=== PATIENT | female | born 1950 | race Caucasian/White ===

== ENCOUNTER → 2019-08-04 | Day surgery (SDC) | payer BC ==
[2019-08-04 09:33] VITALS: RESP 16; TEMP 98
[2019-08-04 10:55] VITALS: BP 163/72; PULSE 67
--- NOTE | 2019-08-04 11:55 | MM ---
EXAMINATION TYPE: MG stereo VAD BX RT DATE OF EXAM: 08/04/2019 COMPARISON: Outside images dated 07/19/2019 CLINICAL HISTORY: Abnormal mammogram. TECHNIQUE: Stereotactic guided core biopsy of right breast. 5 mm group of calcifications in the upper outer quadrant of the right breast for which stereotactic guided biopsy was recommended. FINDINGS: The procedure of stereotactic guided core biopsy was explained to the patient. Benefits, alternatives, and risks were discussed. An informed consent was then obtained. Preprocedural timeout was performed. Preprocedural localization images were obtained and a 5 mm group of calcifications within the upper outer quadrant of the right breast was demonstrated. Coordinates were calculated. Subsequently 10 cc of lidocaine without epinephrine was utilized to anesthetize the skin and deeper subcutaneous soft tissues. The needle was advanced to the appropriate depth. Prefire images were obtained ensuring appropriate location. Postfire injection of 10 cc of lidocaine with epinephrine was utilized to anesthetize the site of biopsy. A vacuum assisted biopsy gun was used to obtain 9 core samples. The patient tolerated the procedure well without any immediate complication. The patient was kept in the radiology department for short stay after the procedure and then discharged home in stable condition. Targeted calcifications are identified in specimen mammogram. Post biopsy mammogram shows the biopsy marker to appear in satisfactory position relative to the targeted area of concern on the preprocedure images without migration. IMPRESSION: SUCCESSFUL, UNCOMPLICATED STEREOTACTIC GUIDED CORE BIOPSY OF A 5 MM GROUP OF CALCIFICATIONS IN THE UPPER OUTER QUADRANT OF THE RIGHT BREAST, FULL PATHOLOGY RESULTS TO FOLLOW. Pathology Results: Benign RIGHT BREAST, STEREOTACTIC CORE BIOPSY: Fibrocystic changes including columnar cell change with calcifications, sclerosing adenosis, fibrosis and cysts. Recommendation Follow up mammogram of the right breast in 6 months. JENIFFER
== END ==
LOC: RADMAMWWP 09:15
PROVIDERS: ATTEND Nurse Practitioner Family
DX: N60.21 Fibroadenosis of right breast (principal); N60.31 Fibrosclerosis of right breast
CPT/HCPCS: 19081; 88305; A4648; J2001

== ENCOUNTER → 2020-05-09 | Outpatient (CLI) | payer BC ==
--- NOTE | 2020-05-14 14:41 | MM ---
Reason for exam: follow-up at short interval from prior study. History: Patient is postmenopausal and had first child at age 40. Benign MG stereo VAD BX RT of the right breast, August 04, 2019. Took estrogen beginning at age 51. Took progesterone beginning at age 51. Physical Findings: Nurse did not find any significant physical abnormalities on exam. MG 3D Diag Mammo W/Cad RT CC and MLO view(s) were taken of the right breast. There are scattered fibroglandular densities. No significant new findings when compared with previous films. These results were verbally communicated with the patient and result sheet given to the patient on 05/09/20. ASSESSMENT: Negative, BI-RAD 1 RECOMMENDATION: Routine screening mammogram of both breasts in 2 months. Back on schedule for June 2020.
== END | disposition home or self-care (01) ==
LOC: RADMAMWWP 13:24
PROVIDERS: ATTEND Nurse Practitioner Family
DX: R92.8 Other abnormal and inconclusive findings on diagnostic imaging of breast (principal)
CPT/HCPCS: 77061; 77065